=== PATIENT | male | born 1965 | race Caucasian/White ===

== ENCOUNTER 2017-08-28 17:03 | Emergency (ER) | payer BC ==
[~2017-08-28] VITALS: Ht 182.9 cm; Wt 81.8 kg
[~2017-08-28 17:03] MED LIST: ZYRTEC 10MG10 MG PO
[2017-08-28 17:10] VITALS: BP 120/79; TEMP 98.1
[2017-08-28] MEDS ORDERED: PROTONIX 40MG T40 MG PO (17:13)
[2017-08-28] MEDS ORDERED: ZOFRAN 4MG T4 MG/TAB PO (17:13)
[2017-08-28] MEDS ORDERED: SYNTHROID 0.0.025 MG PO (17:14)
[2017-08-28 17:46] LABS: COLLECTION METHOD CLEAN CATCH
[2017-08-28 17:57] LABS: BASO % 0.4 % (0.0-2.0); EOS % 0.7 % (0-4.0); GRAN # 3.9 (1.4-6.5); GRAN % 68.9 % (42.2-75.2); HEMATOCRIT 42.6 % (42.0-52.0); HEMOGLOBIN 14.5 g/dl (13.5-18.0); LYMPH # 1.1 (1.2-3.4); LYMPH % 18.6 % (20.0-51.0); MEAN CELL VOLUME 92 fl (80.0-100.0); MEAN CORPUSCULAR HEMOGLOBIN 31 pg (27.0-31.0); MEAN CORPUSCULAR HGB CONC 34 g/dl (33.0-37.0); MEAN PLATELET VOLUME 10.5 fl (7.4-10.4); MONO # 0.6 (0.1-0.6); MONO % 11.2 % (1.7-9.3); PLATELET COUNT 179 K/mm3 (130-400); RED BLOOD COUNT 4.63 M/mm3 (4.20-5.60); REDCELL DISTRIBUTION WIDTH-CV 11.5 % (11.5-14.5)
[2017-08-28 18:02] LABS: PH 7 (5-8); SQUAMOUS EPITHELIAL None Seen /hpf; URINE APPEARANCE Clear; URINE BACTERIA None Seen /hpf; URINE BILIRUBIN Negative (NEGATIVE); URINE BLOOD Negative (NEGATIVE); URINE COLOR Colorless; URINE GLUCOSE Negative (NEGATIVE); URINE KETONE Negative (NEGATIVE); URINE LEUKOCYTE ESTERASE Negative (NEGATIVE); URINE NITRATE Negative (NEGATIVE); URINE PROTEIN(semi-quant) Negative (NEGATIVE); URINE RBC 0-2 /hpf; URINE UROBILINOGEN Negative (NEGATIVE)
[2017-08-28 18:17] LABS: ALANINE AMINOTRANSFERASE 73 U/L (21-72); ALBUMIN 4.1 gm/dL (3.5-5.0); ALKALINE PHOSPHATASE 58 U/L (50-136); ANION GAP 8 mmol/L (7-16); AST,SGOT 43 U/L (15-37); BILIRUBIN,TOTAL 0.8 mg/dL (0.0-1.0); BLOOD UREA NITROGEN 7 mg/dL (9-20); C-REACTIVE PROTEIN < 0.5 mg/dL (0.0-0.9); CARBON DIOXIDE 29 mmol/L (22-30); CHLORIDE 105 mmol/L (98-107); CREATININE, serum 0.98 mg/dL (0.66-1.25); GLUCOSE 102 mg/dL (74-106); LIPASE 75 U/L (23-300); POTASSIUM 3.9 mmol/L (3.4-5.0); SODIUM 142 mmol/L (137-145); TOTAL PROTEIN 6.6 gm/dL (6.4-8.2)
[2017-08-28] MEDS ORDERED: PHENERGAN 25 TA25 MG PO (19:14)
[2017-08-28] MEDS ORDERED: ZANTAC 150MG T150 MG PO (19:14)
[2017-08-28 19:30] VITALS: PULSE 62
== END 2017-08-28 19:32 | disposition home or self-care (01) ==
LOC: COL.ER 17:03
PROVIDERS: Nurse Practitioner
DX: R11.10 Vomiting, unspecified (principal); R19.7 Diarrhea, unspecified; Z90.89 Acquired absence of other organs

== ENCOUNTER → 2017-09-29 | Outpatient (CLI) | payer BC ==
[~2017-09-29] MED LIST changes: +PHENERGAN 25 TA25 MG PO; +PROTONIX 40MG T40 MG PO; +SYNTHROID 0.0.025 MG PO; +ZANTAC 150MG T150 MG PO; +ZOFRAN 4MG T4 MG/TAB PO
== END ==
LOC: COL.RAD 07:57
DX: R11.2 Nausea with vomiting, unspecified (principal)
CPT/HCPCS: A9541

== ENCOUNTER 2017-10-06 08:57 | Day surgery (SDC) | payer BC ==
[~2017-10-06] VITALS: Ht 182.9 cm; Wt 83.7 kg
[~2017-10-06 08:57] MED LIST changes: -SYNTHROID 0.0.025 MG PO; +SYNTHROID0.05 MG/TA PO
[2017-10-06 09:32] VITALS: BP 113/85; PULSE 70; TEMP 98.5
[2017-10-06] MEDS ORDERED: PROBIOTIC-MAJOR PO (09:40)
[2017-10-06 11:05] VITALS: BP 106/80; PULSE 65; TEMP 98.1
[2017-10-06 11:20] VITALS: BP 110/77; PULSE 68
[2017-10-06 11:35] VITALS: BP 109/77; PULSE 64
[2017-10-06 18:25] VITALS: BP 113/80; PULSE 58
== END 2017-10-06 11:50 | disposition home or self-care (01) ==
LOC: SDCO 08:57
DX: K29.30 Chronic superficial gastritis without bleeding (principal); E03.9 Hypothyroidism, unspecified
CPT/HCPCS: OP; J2250; J3010; J7030

== ENCOUNTER → 2017-10-15 | Outpatient (CLI) | payer BC ==
[~2017-10-15] MED LIST changes: +PROBIOTIC-MAJOR PO
== END ==
LOC: COL.RAD 07:28
DX: N20.0 Calculus of kidney (principal); Z90.89 Acquired absence of other organs
CPT/HCPCS: Q9967

== ENCOUNTER 2017-10-20 12:32 | Day surgery (SDC) | payer BC ==
[~2017-10-20] VITALS: Ht 182.9 cm; Wt 79.8 kg
[2017-10-20] VITALS (7 sets, daily range): BP systolic 92–115; BP diastolic 67–79; PULSE 58–83; TEMP 97.8–98.1
== END 2017-10-20 16:10 | disposition home or self-care (01) ==
LOC: SDCO 12:32
DX: K64.0 First degree hemorrhoids (principal); R19.7 Diarrhea, unspecified; R63.4 Abnormal weight loss; E03.9 Hypothyroidism, unspecified
CPT/HCPCS: OP; J2250; J3010; J7030